=== PATIENT | female | born 1980 | race Caucasian/White ===

== ENCOUNTER 2016-05-09 13:34 | Emergency (ER) | payer OTHER, BC ==
[2016-05-09] MEDS ORDERED: ONDANSETRON 4MG/2ML VIAL (J2405) As Ordered ONE (13:57)
[2016-05-09 14:18] LABS: CONTROL LINE HCG INT CTR LINE PRESENT
[2016-05-09] MEDS ORDERED: SUCRALFATE 1 GM TAB As Ordered ONE (15:47)
[2016-05-09] MEDS ORDERED: METOCLOPRAMIDE INJ 10MG/2ML VIAL (J2765) As Ordered ONE (15:47)
--- NOTE | 2016-05-09 16:48 | EDDOCDS ---
Nurse's Notes [facility] Name: Ayla Kellogg Age: 35 yrs Sex: Female : 1980 Arrival Date: 05/09/2016 Time: 13:34 Bed 17 Private MD: [place] [facility] [place] Diagnosis: Vomiting Presentation: 05/09 13:42 Presenting complaint: Patient states: sudden onset of vomiting and diarrhea around 1200 pml this afternoon. Adult Sepsis Screening: The patient does not have new or worsening altered mentation. Patient's respiratory rate is less than 22. Systolic blood pressure is greater than 100. Patient has a qSOFA score of 0- Negative Sepsis Screen. Suicide/Homicide risk assessment- the patient denies having any suicidal and/or homicidal ideations and does not present with any other emotional, behavioral or mental health complaints. 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 Transition of care: patient was not received from another setting of care. 13:42 Acuity: YAEL Level 3 pml 13:42 Method Of Arrival: Ambulance pml Triage Assessment: 13:43 General: Appears uncomfortable, Behavior is appropriate for age, cooperative. Pain: pml Location: epigastric area Pain currently is 7 out of 10 on a pain scale. HIV screening NA for this visit Offered previously. The patient is triaged at the bedside. See Assessment in Nurses Notes section of ED record. Neurological: Level of Consciousness is awake, alert, Oriented to person, place, time. Cardiovascular: Capillary refill < 3 seconds Rhythm is sinus rhythm No ectopy. Respiratory: Airway is patent Respiratory effort is even, unlabored. GI: Abdomen is non- distended obese, Bowel sounds present X 4 quads. Abd is soft X 4 quads. GI: Reports vomiting. Derm: Skin is pink, warm & dry. 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 none - PMHx: Anxiety; Depression; Fibromyalgia; - PSHx: Appendectomy; - Social history: Smoking status: Patient states was never smoker of tobacco. No barriers to communication noted, The patient speaks fluent Swedish, Speaks appropriately for age. - Family history: Not pertinent. - : The pt / caregiver states he / she is not on anticoagulants. Home medication list is obtained from the patient. - Exposure Risk Screening:: None identified. Screenin:44 Screening information is obtained from the patient. Fall risk: No risks identified. pml Assistance ADL's: requires no assistance with activities of daily living. Abuse/DV Screen: The patient / caregiver reports he/she is: not in a situation that causes fear, pain or injury. Nutritional screening: No deficits noted. Advance Directives: Currently, there is no health care proxy. home support is adequate. Assessment: 14:15 General: Appears in no apparent distress, Behavior is appropriate for age, cooperative. pml Pain: Location: epigastric area. Neurological: Level of Consciousness is awake, alert, Oriented to person, place, time. Cardiovascular: Capillary refill < 3 seconds. Respiratory: Airway is patent Respiratory effort is even, unlabored, Respiratory pattern is regular, symmetrical. GI: Abdomen is non- distended obese. Derm: Skin is pink, warm & dry. 15:26 General: tolerating small sips of water. pml 15:54 General: continues to report nausea, pt has produced no emesis since arrival. no pml retching or dry heaving noted. IVF infusing as ordered . 16:44 General: Appears in no apparent distress, comfortable, Behavior is appropriate for age, pml cooperative. Pain: Location: abdomen Pain currently is 2 out of 10 on a pain scale. Neurological: Level of Consciousness is awake, alert, Oriented to person, place, time. Cardiovascular: Capillary refill < 3 seconds. Respiratory: Airway is patent Respiratory effort is even, unlabored. GI: Abdomen is non- distended obese. Derm: Skin is pink, warm & dry. Vital Signs: 13:43 BP 137 / 65; Pulse 81; Resp 18; Pulse Ox 97% on R/A; Weight 104.33 kg; Height 5 ft. 2 pml in. (157.48 cm); Pain 7/10; 14:29 Temp 97.1(O); ls3 16:38 BP 112 / 62; Pulse 89; Resp 20; Temp 98.4; Pulse Ox 99% ; Pain 4/10; jlf 13:43 Body Mass Index 42.07 (104.33 kg, 157.48 cm) [facility] Vitals: 13:43 Log In Time N/A - ambulance arrival. [facility] ED Course: 13:35 Patient visited by Stacie Patel, Ground Products Director. lbd 13:35 Patient moved to Waiting lbd 13:36 [facility] [place] is Private Physician. lbd 13:36 Modesta Rainey MD is Attending Physician. sd1 13:36 Lorin Bonner,RN is Primary Nurse. sd1 13:36 Patient visited by Modesta Rainey MD. sd1 13:36 Patient moved to 17 sd1 13:42 Triage Initiated pml 13:44 Patient visited by Lorin Bonner,ARELY. pml 14:01 Patient visited by Lorin Bonner RN. pml 14:01 Inserted peripheral IV: 20gauge IV in right antecubital area and blood collected. pml Patient tolerated the procedure well. 14:17 [facility] Payment Agreement was scanned into [employer] and attached to record. mm15 14:29 Patient visited by Magy Cerda PCA. ls3 14:36 Patient name changed from Ayla\S\\S\Young\S\ to Ayla\S\ \S\Young. EDMS 15:26 Patient visited by Lorin Bonner RN. pml 15:54 Patient visited by Lorin Bonner RN. pml 16:25 Patient visited by Rico Tang PCA. jlf 16:36 [facility] is Referral Physician. sd1 16:38 Patient visited by Rico Tang PCA. jlf 16:38 Patient visited by Rico Tang PCA. jlf 16:44 The patient / caregiver is instructed regarding the plan of care and ED course. Patient pml has correct armband on for positive identification. Placed in gown. Bed in low position. Call light in reach. Side rails up X2. 16:44 Discontinued lock intact, bleeding controlled, pressure dressing applied, No pml redness/swelling at site. No procedures done that require assistance. Administered Medications: 14:01 Drug: NS 0.9% 1000 ml [sodium chloride 0.9 % intravenous solution] Route: IV; Rate: pml bolus; Site: right antecubital; 16:45 Follow up: IV Status: Completed infusion; IV Intake: 1000ml pml 14:01 Drug: Ondansetron 4 mg [ondansetron HCl 2 mg/mL intravenous solution (2 mL)] Route: pml IVP; Site: right antecubital; 15:53 Drug: Metoclopramide 10 mg [metoclopramide 5 mg/mL injection solution] Route: IV; Rate: pml 40 mg/hr; Infused Over: 15 mins; Site: right antecubital; 16:45 Follow up: IV Status: Completed infusion pml 15:53 Drug: Sucralfate 1 grams [sucralfate 1 gram tablet (1 tabs)] Route: PO; pml Intake: 16:45 IV: 1000.00ml; Total: 1000.00ml. pml Order Results: Lab Order: HCG,Serum Qualitative; SPEC'M 05/09/16 13:56 Test: HCG, SERUM QUALITATIVE; Value: NEGATIVE; Range: NEGATIVE; Status: F Outcome: 16:36 Discharge ordered by Provider. sd1 16:44 Discharge Assessment: Patient awake, alert and oriented x 3. No cognitive and/or pml functional deficits noted. Patient verbalized understanding of disposition instructions. patient administered narcotics - no. The following High Risk Discharge criteria are identified: None. Discharged to home ambulatory. Condition: good Condition: stable. Discharge instructions given to patient, Instructed on discharge instructions, follow up and referral plans. medication usage, Demonstrated understanding of instructions, medications, Pt was receptive of discharge instructions/ teaching. No special radiology studies were completed. Property sent home with patient. 16:46 Patient left the ED. pml Signatures: Dispatcher [employer] EDMS Modesta Rainey MD MD sd1 Stacie Patel, Ground Products Director Unit lbd Lorin Bonner RN RN pml Ed Kang mm15 Rico Tang, LEAD VULCANIZING OPERATOR LEAD VULCANIZING OPERATOR jlf Magy Cerda, LEAD VULCANIZING OPERATOR LEAD VULCANIZING OPERATOR ls3 MTDD
--- NOTE | 2016-05-09 16:48 | EDDOCDS ---
Physician Documentation [facility] Name: Ayla Kellogg Age: 35 yrs Sex: Female : 1980 Arrival Date: 05/09/2016 Time: 13:34 Bed 17 Private MD: [facility] Disposition: 05/09/16 16:36 Discharged to Home/Self Care. Impression: Vomiting. - Condition is Stable. - Discharge Instructions: Nausea and Vomiting. - Prescriptions for ZOFRAN ODT 4 mg - dissolve 1 tablet by ORAL route 4 times per day As needed do not chew, do not swallow whole; 10 tablet. - Medication Reconciliation, Local Pharmacy Hours form. - Follow up: [facility]; When: 1 - 2 days. - Problem is new. - Symptoms are resolved. Historical: - Allergies: no known allergies; - Home Meds: 1. none - PMHx: Anxiety; Depression; Fibromyalgia; - PSHx: Appendectomy; - Social history: Smoking status: Patient states was never smoker of tobacco. No barriers to communication noted, The patient speaks fluent Cameroonian, Speaks appropriately for age. - Family history: Not pertinent. - : The pt / caregiver states he / she is not on anticoagulants. Home medication list is obtained from the patient. - Exposure Risk Screening:: None identified. BACKFILLER: 05/09 13:43 LMP 04/19/2016 pml Vital Signs: 13:43 BP 137 / 65; Pulse 81; Resp 18; Pulse Ox 97% on R/A; Weight 104.33 kg / 230.01 lbs; pml Height 5 ft. 2 in. (157.48 cm); Pain 7/10; 14:29 Temp 97.1(O); ls3 16:38 BP 112 / 62; Pulse 89; Resp 20; Temp 98.4; Pulse Ox 99% ; Pain 4/10; jlf 13:43 Body Mass Index 42.07 (104.33 kg, 157.48 cm) pml MDM: 13:39 NS 0.9% 1000 ml IV at bolus once ordered. sd1 13:39 Ondansetron 4 mg IVP once ordered. sd1 13:40 HCG,Serum Qualitative Ordered. EDMS 14:09 Financial registration complete. mm15 14:17 REPLACED BY [facility] Payment Agreement was scanned into [employer] and attached to record. mm15 14:23 HCG,Serum Qualitative Reviewed. sd1 14:23 Fluid Challenge ordered. sd1 15:33 Metoclopramide 10 mg IV at 40 mg/hr once over 15 mins ordered. sd1 15:33 Sucralfate 1 grams PO once ordered. sd1 Administered Medications: 14:01 Drug: NS 0.9% 1000 ml [sodium chloride 0.9 % intravenous solution] Route: IV; Rate: pml bolus; Site: right antecubital; 16:45 Follow up: IV Status: Completed infusion; IV Intake: 1000ml pml 14:01 Drug: Ondansetron 4 mg [ondansetron HCl 2 mg/mL intravenous solution (2 mL)] Route: pml IVP; Site: right antecubital; 15:53 Drug: Metoclopramide 10 mg [metoclopramide 5 mg/mL injection solution] Route: IV; Rate: pml 40 mg/hr; Infused Over: 15 mins; Site: right antecubital; 16:45 Follow up: IV Status: Completed infusion pml 15:53 Drug: Sucralfate 1 grams [sucralfate 1 gram tablet (1 tabs)] Route: PO; pml Signatures: Dispatcher [employer] Modesta Leong MD MD sd1 Lorin Bonner RN RN pml Ed Kang mm15 The chart was reviewed and I authenticate all verbal orders and agree with the evaluation and treatment provided.Attachments: 14:17 REPLACED BY [facility] Payment Agreement mm15 MTDD
--- NOTE | 2016-05-11 17:47 | EDDOCDS ---
Physician Documentation [facility] Name: Ayla Kellogg Age: 35 yrs Sex: Female : 1980 Arrival Date: 05/09/2016 Time: 13:34 Bed 17 Private MD: [facility] Disposition: 05/09/16 16:36 Discharged to Home/Self Care. Impression: Vomiting. - Condition is Stable. - Discharge Instructions: Nausea and Vomiting. - Prescriptions for ZOFRAN ODT 4 mg - dissolve 1 tablet by ORAL route 4 times per day As needed do not chew, do not swallow whole; 10 tablet. - Medication Reconciliation, Local Pharmacy Hours form. - Follow up: [facility]; When: 1 - 2 days. - Problem is new. - Symptoms are resolved. Historical: - Allergies: no known allergies; - Home Meds: 1. none - PMHx: Anxiety; Depression; Fibromyalgia; - PSHx: Appendectomy; - Social history: Smoking status: Patient states was never smoker of tobacco. No barriers to communication noted, The patient speaks fluent Dutch, Speaks appropriately for age. - Family history: Not pertinent. - : The pt / caregiver states he / she is not on anticoagulants. Home medication list is obtained from the patient. - Exposure Risk Screening:: None identified. LIGHTING TECHNICIAN: 05/09 13:43 LMP 04/19/2016 pml Vital Signs: 13:43 BP 137 / 65; Pulse 81; Resp 18; Pulse Ox 97% on R/A; Weight 104.33 kg / 230.01 lbs; pml Height 5 ft. 2 in. (157.48 cm); Pain 7/10; 14:29 Temp 97.1(O); ls3 16:38 BP 112 / 62; Pulse 89; Resp 20; Temp 98.4; Pulse Ox 99% ; Pain 4/10; jlf 13:43 Body Mass Index 42.07 (104.33 kg, 157.48 cm) pml MDM: 13:39 NS 0.9% 1000 ml IV at bolus once ordered. sd1 13:39 Ondansetron 4 mg IVP once ordered. sd1 13:40 HCG,Serum Qualitative Ordered. EDMS 14:09 Financial registration complete. mm15 14:17 [facility] Payment Agreement was scanned into [employer] and attached to record. mm15 14:23 HCG,Serum Qualitative Reviewed. sd1 14:23 Fluid Challenge ordered. sd1 15:33 Metoclopramide 10 mg IV at 40 mg/hr once over 15 mins ordered. sd1 15:33 Sucralfate 1 grams PO once ordered. sd1 05/10 08:41 T-Sheet-- Draft Copy was scanned into [employer] and attached to record. se Administered Medications: 05/09 14:01 Drug: NS 0.9% 1000 ml [sodium chloride 0.9 % intravenous solution] Route: IV; Rate: pml bolus; Site: right antecubital; 16:45 Follow up: IV Status: Completed infusion; IV Intake: 1000ml pml 14:01 Drug: Ondansetron 4 mg [ondansetron HCl 2 mg/mL intravenous solution (2 mL)] Route: pml IVP; Site: right antecubital; 15:53 Drug: Metoclopramide 10 mg [metoclopramide 5 mg/mL injection solution] Route: IV; Rate: pml 40 mg/hr; Infused Over: 15 mins; Site: right antecubital; 16:45 Follow up: IV Status: Completed infusion pml 15:53 Drug: Sucralfate 1 grams [sucralfate 1 gram tablet (1 tabs)] Route: PO; pml Signatures: Dispatcher [employer] Modesta Leong MD MD sd1 Lorin BonnerRN RN pml Ed Kang mm15 Modesta Deras [facility] The chart was reviewed and I authenticate all verbal orders and agree with the evaluation and treatment provided.Attachments: 14:17 [facility] Payment Agreement mm15 05/10 08:41 T-Sheet-- Draft Copy [facility] Chart Complete MTDD
--- NOTE | 2016-05-11 17:47 | EDDOCDS ---
Nurse's Notes [facility] Name: Ayla Kellogg Age: 35 yrs Sex: Female : 1980 Arrival Date: 05/09/2016 Time: 13:34 Bed 17 Private MD: [place] [facility] [place] Diagnosis: Vomiting Presentation: 05/09 13:42 Presenting complaint: Patient states: sudden onset of vomiting and diarrhea around 1200 pml this afternoon. Adult Sepsis Screening: The patient does not have new or worsening altered mentation. Patient's respiratory rate is less than 22. Systolic blood pressure is greater than 100. Patient has a qSOFA score of 0- Negative Sepsis Screen. Suicide/Homicide risk assessment- the patient denies having any suicidal and/or homicidal ideations and does not present with any other emotional, behavioral or mental health complaints. 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 Transition of care: patient was not received from another setting of care. 13:42 Acuity: YAEL Level 3 pml 13:42 Method Of Arrival: Ambulance pml Triage Assessment: 13:43 General: Appears uncomfortable, Behavior is appropriate for age, cooperative. Pain: pml Location: epigastric area Pain currently is 7 out of 10 on a pain scale. HIV screening NA for this visit Offered previously. The patient is triaged at the bedside. See Assessment in Nurses Notes section of ED record. Neurological: Level of Consciousness is awake, alert, Oriented to person, place, time. Cardiovascular: Capillary refill < 3 seconds Rhythm is sinus rhythm No ectopy. Respiratory: Airway is patent Respiratory effort is even, unlabored. GI: Abdomen is non- distended obese, Bowel sounds present X 4 quads. Abd is soft X 4 quads. GI: Reports vomiting. Derm: Skin is pink, warm & dry. 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 none - PMHx: Anxiety; Depression; Fibromyalgia; - PSHx: Appendectomy; - Social history: Smoking status: Patient states was never smoker of tobacco. No barriers to communication noted, The patient speaks fluent Korean, Speaks appropriately for age. - Family history: Not pertinent. - : The pt / caregiver states he / she is not on anticoagulants. Home medication list is obtained from the patient. - Exposure Risk Screening:: None identified. Screenin:44 Screening information is obtained from the patient. Fall risk: No risks identified. pml Assistance ADL's: requires no assistance with activities of daily living. Abuse/DV Screen: The patient / caregiver reports he/she is: not in a situation that causes fear, pain or injury. Nutritional screening: No deficits noted. Advance Directives: Currently, there is no health care proxy. home support is adequate. Assessment: 14:15 General: Appears in no apparent distress, Behavior is appropriate for age, cooperative. pml Pain: Location: epigastric area. Neurological: Level of Consciousness is awake, alert, Oriented to person, place, time. Cardiovascular: Capillary refill < 3 seconds. Respiratory: Airway is patent Respiratory effort is even, unlabored, Respiratory pattern is regular, symmetrical. GI: Abdomen is non- distended obese. Derm: Skin is pink, warm & dry. 15:26 General: tolerating small sips of water. pml 15:54 General: continues to report nausea, pt has produced no emesis since arrival. no pml retching or dry heaving noted. IVF infusing as ordered . 16:44 General: Appears in no apparent distress, comfortable, Behavior is appropriate for age, pml cooperative. Pain: Location: abdomen Pain currently is 2 out of 10 on a pain scale. Neurological: Level of Consciousness is awake, alert, Oriented to person, place, time. Cardiovascular: Capillary refill < 3 seconds. Respiratory: Airway is patent Respiratory effort is even, unlabored. GI: Abdomen is non- distended obese. Derm: Skin is pink, warm & dry. Vital Signs: 13:43 BP 137 / 65; Pulse 81; Resp 18; Pulse Ox 97% on R/A; Weight 104.33 kg; Height 5 ft. 2 pml in. (157.48 cm); Pain 7/10; 14:29 Temp 97.1(O); ls3 16:38 BP 112 / 62; Pulse 89; Resp 20; Temp 98.4; Pulse Ox 99% ; Pain 4/10; jlf 13:43 Body Mass Index 42.07 (104.33 kg, 157.48 cm) [facility] Vitals: 13:43 Log In Time N/A - ambulance arrival. [facility] ED Course: 13:35 Patient visited by Stacie Patel, Java Tech Lead. lbd 13:35 Patient moved to Waiting lbd 13:36 [facility] [place] is Private Physician. lbd 13:36 Modesta Rainey MD is Attending Physician. sd1 13:36 Lorin Bonner,RN is Primary Nurse. sd1 13:36 Patient visited by Modesta Rainey MD. sd1 13:36 Patient moved to 17 sd1 13:42 Triage Initiated pml 13:44 Patient visited by Lorin Bonner,ARELY. pml 14:01 Patient visited by Lorin Bonner RN. pml 14:01 Inserted peripheral IV: 20gauge IV in right antecubital area and blood collected. pml Patient tolerated the procedure well. 14:17 [facility] [place] Payment Agreement was scanned into [employer] and attached to record. mm15 14:29 Patient visited by Magy Cerda PCA. ls3 14:36 Patient name changed from Ayla\S\\S\Young\S\ to Ayla\S\ \S\Young. EDMS 15:26 Patient visited by Lorin Bonner RN. pml 15:54 Patient visited by Lorin Bonner RN. pml 16:25 Patient visited by Rico Tang PCA. jlf 16:36 [facility] is Referral Physician. sd1 16:38 Patient visited by Rico Tang PCA. jlf 16:38 Patient visited by Rico Tang PCA. jlf 16:44 The patient / caregiver is instructed regarding the plan of care and ED course. Patient pml has correct armband on for positive identification. Placed in gown. Bed in low position. Call light in reach. Side rails up X2. 16:44 Discontinued lock intact, bleeding controlled, pressure dressing applied, No pml redness/swelling at site. No procedures done that require assistance. 05/10 08:41 T-Sheet-- Draft Copy was scanned into [employer] and attached to record. [facility] Administered Medications: 05/09 14:01 Drug: NS 0.9% 1000 ml [sodium chloride 0.9 % intravenous solution] Route: IV; Rate: pml bolus; Site: right antecubital; 16:45 Follow up: IV Status: Completed infusion; IV Intake: 1000ml pml 14:01 Drug: Ondansetron 4 mg [ondansetron HCl 2 mg/mL intravenous solution (2 mL)] Route: pml IVP; Site: right antecubital; 15:53 Drug: Metoclopramide 10 mg [metoclopramide 5 mg/mL injection solution] Route: IV; Rate: pml 40 mg/hr; Infused Over: 15 mins; Site: right antecubital; 16:45 Follow up: IV Status: Completed infusion pml 15:53 Drug: Sucralfate 1 grams [sucralfate 1 gram tablet (1 tabs)] Route: PO; pml Intake: 16:45 IV: 1000.00ml; Total: 1000.00ml. pml Order Results: Lab Order: HCG,Serum Qualitative; SPEC'M 05/09/16 13:56 Test: HCG, SERUM QUALITATIVE; Value: NEGATIVE; Range: NEGATIVE; Status: F Outcome: 16:36 Discharge ordered by Provider. sd1 16:44 Discharge Assessment: Patient awake, alert and oriented x 3. No cognitive and/or pml functional deficits noted. Patient verbalized understanding of disposition instructions. patient administered narcotics - no. The following High Risk Discharge criteria are identified: None. Discharged to home ambulatory. Condition: good Condition: stable. Discharge instructions given to patient, Instructed on discharge instructions, follow up and referral plans. medication usage, Demonstrated understanding of instructions, medications, Pt was receptive of discharge instructions/ teaching. No special radiology studies were completed. Property sent home with patient. 16:46 Patient left the ED. pml Signatures: Dispatcher [employer] EDMS Modesta Rainey MD MD sd1 Stacie Patel, Java Tech Lead Unit Lorin Lindsey RN RN pml Ed Kang mm15 Rico Tang, SENIOR QA AUTOMATION ENGINEER SENIOR QA AUTOMATION ENGINEER shrutif Magy Cerda, SENIOR QA AUTOMATION ENGINEER SENIOR QA AUTOMATION ENGINEER ls3 Modesta Deras Chart Complete MTDD
--- NOTE | 2016-05-11 17:47 | EDDOCDS ---
Physician Documentation [facility] Name: Ayla Kellogg Age: 35 yrs Sex: Female : 1980 Arrival Date: 05/09/2016 Time: 13:34 Bed 17 Private MD: [facility] Disposition: 05/09/16 16:36 Discharged to Home/Self Care. Impression: Vomiting. - Condition is Stable. - Discharge Instructions: Nausea and Vomiting. - Prescriptions for ZOFRAN ODT 4 mg - dissolve 1 tablet by ORAL route 4 times per day As needed do not chew, do not swallow whole; 10 tablet. - Medication Reconciliation, Local Pharmacy Hours form. - Follow up: [facility]; When: 1 - 2 days. - Problem is new. - Symptoms are resolved. Historical: - Allergies: no known allergies; - Home Meds: 1. none - PMHx: Anxiety; Depression; Fibromyalgia; - PSHx: Appendectomy; - Social history: Smoking status: Patient states was never smoker of tobacco. No barriers to communication noted, The patient speaks fluent [place], Speaks appropriately for age. - Family history: Not pertinent. - : The pt / caregiver states he / she is not on anticoagulants. Home medication list is obtained from the patient. - Exposure Risk Screening:: None identified. 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 2 in. (157.48 cm); Pain 7/10; 14:29 Temp 97.1(O); ls3 16:38 BP 112 / 62; Pulse 89; Resp 20; Temp 98.4; Pulse Ox 99% ; Pain 4/10; jlf 13:43 Body Mass Index 42.07 (104.33 kg, 157.48 cm) pml MDM: 13:39 NS 0.9% 1000 ml IV at bolus once ordered. sd1 13:39 Ondansetron 4 mg IVP once ordered. sd1 13:40 HCG,Serum Qualitative Ordered. EDMS 14:09 Financial registration complete. mm15 14:17 [facility] Payment Agreement was scanned into [employer] and attached to record. mm15 14:23 HCG,Serum Qualitative Reviewed. sd1 14:23 Fluid Challenge ordered. sd1 15:33 Metoclopramide 10 mg IV at 40 mg/hr once over 15 mins ordered. sd1 15:33 Sucralfate 1 grams PO once ordered. sd1 05/10 08:41 T-Sheet-- Draft Copy was scanned into [employer] and attached to record. se Administered Medications: 05/09 14:01 Drug: NS 0.9% 1000 ml [sodium chloride 0.9 % intravenous solution] Route: IV; Rate: pml bolus; Site: right antecubital; 16:45 Follow up: IV Status: Completed infusion; IV Intake: 1000ml pml 14:01 Drug: Ondansetron 4 mg [ondansetron HCl 2 mg/mL intravenous solution (2 mL)] Route: pml IVP; Site: right antecubital; 15:53 Drug: Metoclopramide 10 mg [metoclopramide 5 mg/mL injection solution] Route: IV; Rate: pml 40 mg/hr; Infused Over: 15 mins; Site: right antecubital; 16:45 Follow up: IV Status: Completed infusion pml 15:53 Drug: Sucralfate 1 grams [sucralfate 1 gram tablet (1 tabs)] Route: PO; pml Signatures: Dispatcher [employer] Modesta Leong MD MD sd1 Lorin BonnerRN RN pml Ed Kang mm15 Modesta Deras [facility] The chart was reviewed and I authenticate all verbal orders and agree with the evaluation and treatment provided.Attachments: 14:17 [facility] [place] Payment Agreement mm15 05/10 08:41 T-Sheet-- Draft Copy [facility] Chart Complete MTDD
== END 2016-05-09 16:46 | disposition home or self-care (01) ==
LOC: M ED 13:34
DX: R11.2 Nausea with vomiting, unspecified (principal); F32.9 Major depressive disorder, single episode, unspecified; F41.9 Anxiety disorder, unspecified; M79.7 Fibromyalgia
CPT/HCPCS: 36415; 84703; 96361; 96365; 96375; 99284; J2405; J2765

== ENCOUNTER → 2020-07-25 | Outpatient (CLI) | payer SELFPAY | LOC: M LABSMTC 12:28 | PROVIDERS: ATTEND Pediatrics | DX: Z20.822 Contact with and (suspected) exposure to COVID-19 (principal) ==

== ENCOUNTER → 2020-09-27 | Outpatient (CLI) | payer BC | LOC: M LABSMTC 10:43 | PROVIDERS: ATTEND Pediatrics | DX: Z20.828 Contact with and (suspected) exposure to other viral communicable diseases (principal); Z11.59 Encounter for screening for other viral diseases ==